=== PATIENT | male | born 1970 | race Caucasian/White ===

== ENCOUNTER → 2016-10-16 | Outpatient (CLI) | payer OTHER ==
[~2016-10-16] MED LIST: AUGM12TA2 PO; CARD120C4 PO; CARD240C6 PO; CIPR500T4 PO; COZA100T PO; DILA2TAB2 PO; FURO1TAB61 PO; GLYB1TAB51 PO; GUAN1TAB PO; INSU1INJ3 SQ; LIPI10TA PO; SODI650T PO; TAMS0.4C4 PO; VITA1000 PO; VITA10004 PO; ZOLO50TA PO
[2016-10-16 09:59] LABS: HEMATOCRIT 28.6 % (39.0-51.0); MEAN CELL VOLUME 79.2 FL (80.0-100.0); PLATELET COUNT 204 TH/MM3 (150-450); RED BLOOD COUNT 3.61 MIL/MM3 (4.50-5.90); RED CELL DISTRIBUTION WIDTH 14.4 % (11.6-17.2); REVIEW FLAG FINAL; WHITE BLOOD COUNT 6.7 TH/MM3 (4.0-11.0)
[2016-10-16 10:08] LABS: PROTHROMBIN TIME - PATIENT 10.7 SEC (9.8-11.6)
[2016-10-16 10:13] LABS: BICARBONATE 24.3 MEQ/L (21.0-32.0); POTASSIUM 5.7 MEQ/L (3.5-5.1)
== END ==
LOC: CPRE 09:05
PROVIDERS: ATTEND Surgery
DX: Z01.812 Encounter for preprocedural laboratory examination (principal); N18.6 End stage renal disease; Z99.2 Dependence on renal dialysis
CPT/HCPCS: 36415; 80048; 85027; 85610

== ENCOUNTER 2016-10-23 09:30 | Observation (INO) | payer OTHER ==
[~2016-10-23] VITALS: Ht 172.7 cm; Wt 91.5 kg
[~2016-10-23 09:30] MED LIST changes: -AUGM12TA2 PO; -CIPR500T4 PO; -DILA2TAB2 PO; -GLYB1TAB51 PO; -TAMS0.4C4 PO
[2016-10-23] MEDS ORDERED: CHLORHEXIDINE GLUCONATE 2 % 1 PACK (2 CLOTHS) TOPICAL PRN (10:00)
[2016-10-23] MEDS ORDERED: LACTATED RINGER'S 1000 ML IV PRN (10:00)
[2016-10-23] MEDS ORDERED: POVIDONE IODINE 5% (ANTISEPSIS KIT) 4 APPLICATIONS EACH NARE PRN (10:00)
[2016-10-23] MEDS ORDERED: INSULIN HUMAN REGULAR 1,000 UNITS/10 ML VIAL SQ PRN (10:00)
[2016-10-23] MEDS ORDERED: SODIUM CHLORID 0.9% 500 ML IV PRN (10:00)
[2016-10-23] MEDS ORDERED: METOPROLOL TARTRATE 25 MG TAB PO PRN (10:00)
[2016-10-23 10:10] VITALS: BP 163/81; PULSE 73; RESP 18; TEMP 98.2; O2SAT 98
[2016-10-23 10:17] VITALS: BP 163/81; PULSE 73; RESP 18; TEMP 98.2; O2SAT 98
[2016-10-23] MEDS ORDERED: VANCOMYCIN HCL 1000 MG VIAL ONE (10:21)
[2016-10-23] MEDS ORDERED: HEPARIN SODIUM - IV 10,000 UNITS/10 ML VIAL ONE (10:21)
[2016-10-23] MEDS ORDERED: PROTAMINE SULFATE 50 MG/5 ML VIAL ONE (10:21)
[2016-10-23] MEDS ORDERED: BUPIVACAINE/EPINEPHRINE 0.5% PF 30 ML VIAL ONE (10:21)
[2016-10-23] MEDS ORDERED: THROMBIN (TOPICAL) 20,000 UNIT SPRAY KIT ONE (10:23)
--- NOTE | 2016-10-23 10:25 | PD.VS.PN ---
Pre-operative Note Pre-operative diagnosis: near ESRD Planned procedure: L brachiobasilic AVF Interval History: Pt feels well - not yet on HD. No interval changes that would preclude OR. Labs: K 5.7 - repeat pending Hct 29 plt 204 Blood: T&S Imaging: none Orders: NPO Ancef 2g IV OCTOR Post-operative destination: PACU Operative site marked: Yes Consent: Informed consent has been obtained from Christian Gomez. I have explained the procedure in detail and discussed the risks, benefits, and potential complications. All questions have been answered. Patient contact information: [phone] Matthew Leon MD Oct 23, 2016 10:25
[2016-10-23] MEDS ORDERED: ceFAZolin 2 GM PREMIX 50 ML ONE (11:04)
[2016-10-23] MEDS ORDERED: ONDANSETRON HCL 4 MG/2 ML VIAL IV PUSH ONE (12:00)
[2016-10-23] MEDS ORDERED: PHENYLEPH/NS 1000 MCG/10 ML SYR IV ONE (12:00)
[2016-10-23] MEDS ORDERED: PROPOFOL 200 MG/20 ML AMP IV ONE (12:00)
--- NOTE | 2016-10-23 12:54 | HHI.PR ---
cc: Param Stapleton MD Immediate Post Op Note Procedure Date: Oct 23, 2016 Pre Op Diagnosis: near ESRD, need for HD access Post Op Diagnosis: near ESRD, need for HD access Surgeon: Matthew Leon [employer] Observer Helper(s): Khai Garcia Procedure: L brachiobasilic AVF Findings: calcified artery, vein 3-7mm Additional Information: + thrill at end of case + radial Doppler signal Complications: none apparent Specimen(s) removed: none Estimated blood loss: 30mL Anesthesia: General Drains: KLARISSA Fluids: 300mL IVF Patient to: PACU Patient Condition: Good Date/Time of Procedure: SEE SURGICAL CARE RECORD Matthew Leon MD Oct 23, 2016 12:54
[2016-10-23] MEDS ORDERED: MIDAZOLAM HCL 2 MG/2 ML VIAL ONE (13:20)
[2016-10-23] MEDS ORDERED: DO NOT ADM ANY ANTICOAGULANT DRUGS PRN (13:30)
[2016-10-23] MEDS ORDERED: *LABETALOL HCL 100 MG/20 ML VIAL PERIprocedural Use ONLY ONE (13:31)
[2016-10-23] MEDS ORDERED: *ONDANSETRON 4 MG VIAL PERIprocedural Use ONLY ONE ×2 (13:45→15:04)
[2016-10-23] MEDS ORDERED: *ENALAPRILAT 1.25 MG/ML VIAL PERIprocedural Use ONLY ONE (14:02)
[2016-10-23] MEDS ORDERED: *PROMETHAZINE 25 MG/ML VIAL PERIprocedural use ONLY ONE ×2 (14:09→15:28)
--- NOTE | 2016-10-23 14:38 | PD.CONS ---
HPI Service Nephrology Consult Requested By Dr. Leon Reason for Consult Chronic kidney disease stage IV Primary Care Physician Christian Denson MD History of Present Illness Patient is a 45-year-old white male with history of type 2 diabetes, hypertension, chronic kidney disease stage IV GFR is 19 and has been admitted to have AV fistula placed in his left upper arm, this was done he is doing well he said that he is passing urine denies any dysuria or burning, his potassium was 5.6 and repeat potassium is pending. He denies any chest pain or shortness of breath postoperatively. Review of Systems Musculoskeletal: COMPLAINS OF: Muscle aches Past Family Social History Allergies: Coded Allergies: Erythromycin (Verified Allergy, Severe, 10/23/16) PT STATES NO KNOWN ALLERGIES. Gentamicin (Verified Allergy, Severe, OTOTOXICITY, 10/23/16) PT STATES NO KNOWN ALLERGIES. Penicillin (Verified Allergy, Severe, 10/23/16) PT STATES NO KNOWN ALLERGIES. Sulfa (Verified Allergy, Severe, 10/23/16) PT STATES NO KNOWN ALLERGIES. Cleocin (Verified Allergy, Intermediate, 10/23/16) PT STATES NO KNOWN ALLERGIES. Keflex (Verified Allergy, Intermediate, 10/23/16) PT STATES NO KNOWN ALLERGIES. Nonsteroidal Anti-Inflammatory Agts (Verified Allergy, Intermediate, ) PT STATES NO KNOWN ALLERGIES. Zithromax (Verified Allergy, Intermediate, 10/23/16) PT STATES NO KNOWN ALLERGIES. 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 (Adverse Reaction, Unknown, 10/16/16) Past Medical History Diabetes Hypertension Chronic kidney disease stage IV Hyperkalemia Hyperlipidemia Past Surgical History Appendicitis 9 years ago status post appendectomy Reported Medications Reported Meds & Active Scripts Active Reported Vitamin B12 Tr (Cyanocobalamin) 1,000 Mcg Tab 1,000 Mcg PO DAILY Sodium Bicarbonate 650 Mg Tab 650 Mg PO BIDPC Zoloft (Sertraline HCl) 50 Mg Tab 50 Mg PO DAILY Cozaar (Losartan Potassium) 100 Mg Tab 100 Mg PO HS Humulin 70-30 Kwikpen Pen Inj (Insulin NPH Isophane-Reg (Human) 70-30 Inj) 300 Unit/3 Ml Pen 25 Unit SQ DAILY Guanfacine (Guanfacine HCl) 1 Mg Tab 1 Mg PO HS Do not crush, chew or divide tablet. Take with a meal. Lasix (Furosemide) 80 Mg Tab 80 Mg PO BID Cardizem CD 24 HR (Diltiazem CD 24 HR) 120 Mg Caper 120 Mg PO HS Cardizem CD 24 HR (Diltiazem CD 24 HR) 240 Mg Caper 240 Mg PO DAILY Vitamin D-1000 (Cholecalciferol) 1,000 Unit Tab 1,000 Units PO DAILY Lipitor (Atorvastatin Calcium) 10 Mg Tab 10 Mg PO HS Family History Noncontributory Social History Denies smoking or alcohol Physical Exam Vital Signs Vital Signs Date Time Temp Pulse Resp B/P Pulse Ox O2 Delivery O2 Flow Rate FiO2 10/23/16 14:30 74 18 150/72 96 Room Air 10/23/16 14:21 75 17 169/77 96 Room Air 10/23/16 14:15 79 18 184/79 97 Room Air 10/23/16 14:00 74 17 182/80 100 Nasal Cannula 2 10/23/16 13:45 74 18 167/75 100 Nasal Cannula 2 10/23/16 13:41 72 18 173/65 99 Nasal Cannula 2 10/23/16 13:30 72 16 186/78 99 Nasal Cannula 2 10/23/16 13:15 78 16 187/79 100 Nasal Cannula 2 10/23/16 13:12 97.9 82 16 198/84 99 Nasal Cannula 2 10/23/16 10:17 98.2 73 18 163/81 98 Physical Exam GENERAL: Well-nourished, well-developed patient. SKIN: Warm and dry. HEAD: Normocephalic. EYES: No scleral icterus. No injection or drainage. NECK: Supple, trachea midline. No JVD or lymphadenopathy. CARDIOVASCULAR: Regular rate and rhythm without murmurs, gallops, or rubs. RESPIRATORY: Breath sounds equal bilaterally. No accessory muscle use. GASTROINTESTINAL: Abdomen soft, non-tender, nondistended. EXTREMITIES: No cyanosis, or edema. AV fistula left arm positive thrill NEUROLOGICAL: Awake, alert, and oriented x 3. Non-focal. Laboratory Laboratory Tests Test 10/23/16 10:10 Potassium Level 5.6 Blood Type A POSITIVE Antibody Screen NEGATIVE Blood Bank Comment Result Diagram: 10/23/16 1010 Assessment and Plan Problem List: (1) CKD (chronic kidney disease) stage 4, GFR 15-29 ml/min Plan: Patient has AV fistula done on the left arm he is doing well he is not on dialysis yet and can be followed by Dr. Stapleton once discharge Limit potassium intake in diet avoid LR (2) Hyperkalemia Plan: Limit potassium in diet (3) Diabetes Plan: Follow blood glucose Justyna Mota MD Oct 23, 2016 14:38
[2016-10-23] MEDS ORDERED: *morphine SULFATE 8 MG/ML PERIprocedure ONLY ONE (14:58)
[2016-10-23 15:01] LABS: BICARBONATE 21.5 MEQ/L (21.0-32.0); POTASSIUM 6.5 MEQ/L (3.5-5.1)
[2016-10-23 16:34] VITALS: BP 181/72; PULSE 20; RESP 20; TEMP 96.7; O2SAT 95
--- NOTE | 2016-10-23 16:37 | PD.VS.PN ---
Subjective POD #: 0 Procedure(s): LEFT brachiobasilic AVF Subjective/Hospital Course feels well, arm sore but pain controlled no hand complaints. Objective Vitals/I&O Date Time Temp Pulse Resp B/P Pulse Ox O2 Delivery O2 Flow Rate FiO2 10/23/16 15:32 16 10/23/16 15:30 73 16 143/69 96 Room Air 10/23/16 15:15 75 18 160/74 96 Room Air 10/23/16 15:00 75 18 165/75 97 Room Air 10/23/16 14:45 74 18 158/76 96 Room Air 10/23/16 14:30 74 18 150/72 96 Room Air 10/23/16 14:21 75 17 169/77 96 Room Air 10/23/16 14:15 79 18 184/79 97 Room Air 10/23/16 14:00 74 17 182/80 100 Nasal Cannula 2 10/23/16 13:45 74 18 167/75 100 Nasal Cannula 2 10/23/16 13:41 72 18 173/65 99 Nasal Cannula 2 10/23/16 13:30 72 16 186/78 99 Nasal Cannula 2 10/23/16 13:15 78 16 187/79 100 Nasal Cannula 2 10/23/16 13:12 97.9 82 16 198/84 99 Nasal Cannula 2 10/23/16 10:17 98.2 73 18 163/81 98 10/23/16 10/23/16 10/23/16 06:59 14:59 22:59 Intake Total 30 ml Output Total 150 ml Balance -120 ml Exam: L UE incision c/d/i + thrill Good hand strength KLARISSA with minimal output Laboratory Laboratory Tests Test 10/23/16 10/23/16 10:10 13:57 Potassium Level 5.6 6.5 Blood Type A POSITIVE Antibody Screen NEGATIVE Blood Bank Comment Sodium Level 140 Chloride Level 109 Carbon Dioxide Level 21.5 Anion Gap 10 Blood Urea Nitrogen 86 Creatinine 5.39 Estimat Glomerular Filtration 12 Rate Random Glucose 149 Calcium Level 8.7 Assessment and Plan Plan AVF patent, hand ok 1. Monitor drain output 2. K 6.5 - defer to nephrology for management; left message for consulting 3. Anticipate d/c tomorrow (POD#1) Discharge Planning Thursday (POD#1) Matthew Leon MD Oct 23, 2016 16:37
[2016-10-23] MEDS: HYDROmorphone HCL 2 MG TAB PO PRN ×2 (16:39→20:36)
[2016-10-23] MEDS: SODIUM POLYSTYRENE SULFONATE SUSP 15 GM/60 ML CUP PO ONE ×2 (16:39→17:39)
[2016-10-23] MEDS ORDERED: CALCIUM GLUCONATE 10% 1 GM/10 ML VIAL IV PUSH ONE (17:00)
[2016-10-23] MEDS ORDERED: INSULIN HUMAN REGULAR 1,000 UNITS/10 ML VIAL IV PUSH ONE (17:00)
[2016-10-23] MEDS ORDERED: DEXTROSE 50% IN WATER 50 ML SYRINGE IV ONE (17:00)
[2016-10-23] MEDS: SODIUM BICARBONATE 650 MG TAB PO SCH ×2 (17:33→18:49)
[2016-10-23 20:00] VITALS: PULSE 80
[2016-10-23 20:26] VITALS: BP 166/84; PULSE 80; RESP 17; TEMP 97.5; O2SAT 95
[2016-10-23] MEDS: FUROSEMIDE 80 MG TAB PO SCH (20:35)
[2016-10-23] MEDS ORDERED: DILTIAZEM-CD 120 MG CAP ER PO SCH (21:00)
[2016-10-23] MEDS ORDERED: LOSARTAN 50 MG TAB PO SCH (21:00)
[2016-10-23] MEDS ORDERED: ATORVASTATIN 10 MG TAB PO SCH (21:00)
[2016-10-23] MEDS ORDERED: guanFACINE HCL 1 MG TAB PO SCH (21:00)
[2016-10-24 00:07] VITALS: BP 158/80; PULSE 78; RESP 17; TEMP 98.4; O2SAT 97
[2016-10-24 04:26] VITALS: BP 144/76; PULSE 88; RESP 18; TEMP 98.6; O2SAT 96
[2016-10-24] MEDS: HYDROmorphone HCL 2 MG TAB PO PRN ×3 (05:27→16:36)
[2016-10-24 06:27] LABS: BICARBONATE 22.7 MEQ/L (21.0-32.0)
[2016-10-24 08:07] VITALS: BP 171/79; PULSE 83; RESP 18; TEMP 98.9; O2SAT 94
[2016-10-24] MEDS: SODIUM BICARBONATE 650 MG TAB PO SCH (08:28)
[2016-10-24] MEDS: FUROSEMIDE 80 MG TAB PO SCH (08:28)
[2016-10-24] MEDS ORDERED: CYANOCOBALAMIN 1,000 MCG TAB PO SCH (09:00)
[2016-10-24] MEDS ORDERED: INSULIN HUMAN NPH/R 70/30 1,000 UNITS/10 ML VIAL SQ SCH (09:00)
[2016-10-24] MEDS ORDERED: DILTIAZEM-CD 240 MG CAP ER PO SCH (09:00)
[2016-10-24] MEDS ORDERED: CHOLECALCIFEROL (VIT D3) 1000 UNIT TAB PO SCH (09:00)
[2016-10-24] MEDS ORDERED: SERTRALINE HCL 50 MG TAB PO SCH (09:00)
--- NOTE | 2016-10-24 09:08 | PD.VS.PN ---
Subjective POD #: 1 Procedure(s): LEFT brachiobasilic AVF Subjective/Hospital Course Pt alert this am with FM at the Pain controlled Pt w/o hand pain Drain removed from Left arm Objective Vitals/I&O Date Time Temp Pulse Resp B/P Pulse Ox O2 Delivery O2 Flow Rate FiO2 10/24/16 08:07 98.9 83 18 171/79 94 10/24/16 06:20 20 10/24/16 05:02 21 10/24/16 04:26 98.6 88 18 144/76 96 10/24/16 00:07 98.4 78 17 158/80 97 10/23/16 20:26 97.5 80 17 166/84 95 10/23/16 20:00 80 10/23/16 16:34 96.7 20 20 181/72 95 10/23/16 15:32 16 10/23/16 15:30 73 16 143/69 96 Room Air 10/23/16 15:15 75 18 160/74 96 Room Air 10/23/16 15:00 75 18 165/75 97 Room Air 10/23/16 14:45 74 18 158/76 96 Room Air 10/23/16 14:30 74 18 150/72 96 Room Air 10/23/16 14:21 75 17 169/77 96 Room Air 10/23/16 14:15 79 18 184/79 97 Room Air 10/23/16 14:00 74 17 182/80 100 Nasal Cannula 2 10/23/16 13:45 74 18 167/75 100 Nasal Cannula 2 10/23/16 13:41 72 18 173/65 99 Nasal Cannula 2 10/23/16 13:30 72 16 186/78 99 Nasal Cannula 2 10/23/16 13:15 78 16 187/79 100 Nasal Cannula 2 10/23/16 13:12 97.9 82 16 198/84 99 Nasal Cannula 2 10/23/16 10:17 98.2 73 18 163/81 98 Exam: GENERAL: A&OX3, NAD SKIN: Warm and dry/ Incision to left arm intact with surgical glue mild swelling present with erythema along the incision borders no drainage present Palpable L radial pulse No UE motor deficits present Pt w/o hand pain Laboratory Laboratory Tests Test 10/23/16 10/23/16 10/24/16 10:10 13:57 05:19 Potassium Level 5.6 6.5 6.0 Blood Type A POSITIVE Antibody Screen NEGATIVE Blood Bank Comment Sodium Level 140 140 Chloride Level 109 108 Carbon Dioxide Level 21.5 22.7 Anion Gap 10 9 Blood Urea Nitrogen 86 85 Creatinine 5.39 5.64 Estimat Glomerular Filtration 12 11 Rate Random Glucose 149 169 Calcium Level 8.7 8.3 Assessment and Plan Assessment: (1) CKD (chronic kidney disease) stage 4, GFR 15-29 ml/min Status: Acute Plan AVF patent, hand ok- K - 6.0 this am Plan Removed drain from Left arm Spoke w/ Dr. Mota (K 6.0 this am- defer to nephrology for management) Repeat K this afternoon Potential D/C this afternoon once cleared by nephrology Jessica GOODE [facility]/[place] [phone] Discharge Planning Potentially this afternoon Jessica Grady Oct 24, 2016 09:08
[2016-10-24 10:15] VITALS: O2SAT 96
[2016-10-24] MEDS ORDERED: SODIUM POLYSTYRENE SULFONATE SUSP 15 GM/60 ML CUP PO ONE (11:00)
[2016-10-24 12:00] VITALS: BP 189/80; PULSE 85; RESP 20; TEMP 97.7; O2SAT 96
[2016-10-24] MEDS: HEPARIN SODIUM - SQ 10,000 UNITS/ML VIAL SQ SCH ×2 (12:10→12:12)
--- NOTE | 2016-10-24 12:30 | HHI.NPPN ---
Subjective History of Present Illness 45 year old male with CKD approaching ESRD AVF left was created yesterday Additional Remarks developed hyperkalemia Objective Data Data 10/23/16 10/24/16 19:00 07:00 Intake Total 30 ml 760 ml Output Total 150 ml 713 ml Balance -120 ml 47 ml Intake Oral 30 ml 760 ml Output Urine Total 0 ml 700 ml Emesis 150 ml Drainage Total 13 ml # Voids 1 # Bowel Movements 0 Vital Signs Date Time Temp Pulse Resp B/P Pulse Ox O2 Delivery O2 Flow Rate FiO2 10/24/16 12:00 97.7 85 20 189/80 96 10/24/16 10:15 96 10/24/16 08:07 98.9 83 18 171/79 94 10/24/16 06:20 20 10/24/16 05:02 21 10/24/16 04:26 98.6 88 18 144/76 96 10/24/16 00:07 98.4 78 17 158/80 97 10/23/16 20:26 97.5 80 17 166/84 95 10/23/16 20:00 80 10/23/16 16:34 96.7 20 20 181/72 95 10/23/16 15:32 16 10/23/16 15:30 73 16 143/69 96 Room Air 10/23/16 15:15 75 18 160/74 96 Room Air 10/23/16 15:00 75 18 165/75 97 Room Air 10/23/16 14:45 74 18 158/76 96 Room Air 10/23/16 14:30 74 18 150/72 96 Room Air 10/23/16 14:21 75 17 169/77 96 Room Air 10/23/16 14:15 79 18 184/79 97 Room Air 10/23/16 14:00 74 17 182/80 100 Nasal Cannula 2 10/23/16 13:45 74 18 167/75 100 Nasal Cannula 2 10/23/16 13:41 72 18 173/65 99 Nasal Cannula 2 10/23/16 13:30 72 16 186/78 99 Nasal Cannula 2 10/23/16 13:15 78 16 187/79 100 Nasal Cannula 2 10/23/16 13:12 97.9 82 16 198/84 99 Nasal Cannula 2 -: 10/24/16 0519 Physical Exam General Appearance: Well Developed, Well Nourished Neck Neck Exam: Neck Supple Pulmonary Resp Exam: Clear Bilaterally, Breath Sounds Equal Cardiology CV Exam: Regular, Normal Sinus Rhythm Gastrointestinal/Abdomen GI Exam: Soft, Non-Tender, Bowel Sounds Present Integumentary Skin Exam: Clear Extremeties Extremities Exam: No Edema Extremeties Remarks AVF left positive thrill Assessment/Plan Problem List: (1) CKD (chronic kidney disease) stage 4, GFR 15-29 ml/min Plan: Patient has AV fistula done on the left arm he is doing well he is not on dialysis yet and can be followed by Dr. Stapleton once discharge Limit potassium intake in diet stop Losartan as hyperkalemic increase Tenex 2 ng q hs Kayexalate given recheck if less then 6 OK to discharge (2) Hyperkalemia Plan: Limit potassium in diet as above (3) Diabetes Plan: Follow blood glucose Justyna Mota MD Oct 24, 2016 12:30
--- NOTE | 2016-10-24 16:08 | MP ---
cc: CHRISTINA LEON MD DATE OF SURGERY 10/23/16 PREOPERATIVE DIAGNOSIS Near end-stage renal disease, needs dialysis access. POSTOPERATIVE DIAGNOSIS Near end-stage renal disease, needs dialysis access. PROCEDURE Left brachial basilic arteriovenous fistula. ATTENDING SURGEON Christina Leon MD ANESTHESIA General. INDICATIONS Mr. Gomez is a 45-year-old gentleman with near end-stage renal disease with a creatinine of 4.8. He has never been on dialysis. He is taken to the operating room for dialysis access creation. Preoperative imaging suggested he had adequate left basilic vein. DESCRIPTION OF PROCEDURE Informed consent was obtained. The patient was taken to the operating room, placed supine on the operating room table and an appropriate time-out was taken to ensure the patient's identity, operative site and planned procedure. Two grams of Ancef was initiated prior to skin incision and will be discontinued after single preoperative. Everyone in the room agreed and we proceeded. His left arm was prepped and draped. Incision made over the medial aspect of the upper arm, carried down to subcutaneous tissue with electrocautery. The basilic vein was identified and dissected free from just distal to the antecubitum all the way up against the axillary vein. Side branches were ligated with 3-0 silk and the vein was marked for orientation, clamped distally. The distal end was oversewn with 3-0 silk. The proximal end was clamped with a Abhi bulldog and the vein was distended, marked for inpatient. The brachial artery was identified on the medial aspect of the incision and dissected free for several cm. It was noted to be quite calcified. A tunnel was then created in the anterior aspect of the upper arm. The basilic vein was tied to the tunneler and passed through the tunnel taking caution not to twist it. The patient was systemically heparinized with 3000 units of IV heparin. Proximal, distal control of the brachial artery were obtained with profunda clamps and a longitudinal arteriotomy was made with an 11 blade, extended with Vini scissors. The vein was spatulated and sewn end-to-side with running 6-0 Prolene suture. The completion was flushed and noted to be hemostatic with nice Doppler signal in the wrist and a beautiful thrill in the fistula. The wound was irrigated, made hemostatic. The heparin reversed with protamine and a 10 flat KLARISSA drain was placed through a separate stab incision and secured to the skin with a 2-0 nylon. The wound was then closed with O Polysorb, 3-0 Polysorb and 4-0 Monocryl. Sponge and needle counts were correct at the end of the case. I was present and scrubbed for the entire procedure. MD NATALIA Evans/[place] /4:57 PM /3:54 PM MTDFranck
[2016-10-24] MEDS ORDERED: DILA2TAB2 PO (16:09)
--- NOTE | 2016-10-24 16:18 | PD.VS.DC ---
Discharge Summary Admission Date: Oct 23, 2016 at 12:58 Discharge Date: Oct 24, 2016 Admission Diagnosis: (1) CKD (chronic kidney disease) stage 4, GFR 15-29 ml/min Discharge Diagnosis: (1) CKD (chronic kidney disease) stage 4, GFR 15-29 ml/min Status: Acute Brief History from admission Pt with near ESRD who is not currently on dialysis Patient admitted for HD access and monitoring Procedure(s): LEFT brachiobasilic AVF Significant Findings GENERAL: Pt A&OX3, GCS 15, NAD Incision to Left arm intact with surgical glue + palpable Radial pulse Laboratory Tests Test 10/23/16 10/23/16 10/24/16 10:10 13:57 05:19 Potassium Level 5.6 MEQ/L 6.5 MEQ/L 6.0 MEQ/L (3.5-5.1) (3.5-5.1) (3.5-5.1) Chloride Level 109 MEQ/L 108 MEQ/L (98-107) (98-107) Blood Urea Nitrogen 86 MG/DL (7-18) 85 MG/DL (7-18) Creatinine 5.39 MG/DL 5.64 MG/DL (0.60-1.30) (0.60-1.30) Estimat Glomerular Filtration 12 ML/MIN (>89) 11 ML/MIN (>89) Rate Random Glucose 149 MG/DL 169 MG/DL (74-106) (74-106) Calcium Level 8.3 MG/DL (8.5-10.1) Hospital Course: Pt with near ESRD who is not currently on dialysis Patient admitted for HD access and monitoring Pt s/p L BB w/o complications Pt w/o hand pain or motor deficits Pt developed hyperkalemia and nephrology was consulted Repeat K done today - K- 4.8 Pt will f/u with nephrology Allergies Coded Allergies Type Severity Reaction Last Updated Verified Erythromycin Allergy Severe 10/23/16 Yes Gentamicin Allergy Severe OTOTOXICITY 10/23/16 Yes Penicillin Allergy Severe 10/23/16 Yes Sulfa Allergy Severe 10/23/16 Yes Cleocin Allergy Intermediate 10/23/16 Yes Keflex Allergy Intermediate 10/23/16 Yes Nonsteroidal Anti-Inflammatory Agts Allergy Intermediate 10/23/16 Yes Zithromax Allergy Intermediate 10/23/16 Yes *MDRO Multi-Drug Resistant Organism Adverse Reaction Unknown 10/23/16 Yes Uncoded Allergies Type Severity Reaction Last Updated Verified patient denies any drug allergies. Adverse Reaction Unknown 10/16/16 //// 06:00 18:00 06:00 18:00 06:00 18:00 Intake Total 30 ml 760 ml 600 ml Output Total 150 ml 713 ml 200 ml Balance -120 ml 47 ml 400 ml Intake Oral 30 ml 760 ml 600 ml Output Urine Total 0 ml 700 ml 200 ml Emesis 150 ml Drainage Total 13 ml # Voids 1 1 # Bowel Movements 0 Laboratory Tests Test 10/23/16 10/23/16 10/24/16 10/24/16 10:10 13:57 05:19 14:32 Potassium Level 5.6 MEQ/L 6.5 MEQ/L 6.0 MEQ/L 4.8 MEQ/L Blood Type A POSITIVE Antibody Screen NEGATIVE Blood Bank Comment Sodium Level 140 MEQ/L 140 MEQ/L Chloride Level 109 MEQ/L 108 MEQ/L Carbon Dioxide Level 21.5 MEQ/L 22.7 MEQ/L Anion Gap 10 MEQ/L 9 MEQ/L Blood Urea Nitrogen 86 MG/DL 85 MG/DL Creatinine 5.39 MG/DL 5.64 MG/DL Estimat Glomerular Filtration 12 ML/MIN 11 ML/MIN Rate Random Glucose 149 MG/DL 169 MG/DL Calcium Level 8.7 MG/DL 8.3 MG/DL Procedure Category Date Status Time Type And Screen BBK 10/23/16 Complete 09:32 Potassium, Serum (K) LAB 10/23/16 Complete 09:52 Lactated Ringer's MED 10/23/16 Complete 1000 Ml Inj (Lr 1000 M 10:00 Sodium Chlorid 0.9% MED 10/23/16 In Process 500 Ml Inj (Ns 500 M 10:00 Metoprolol Tartrate MED 10/23/16 In Process (Lopressor) 10:00 Povidone Iod 5% MED 10/23/16 In Process Antisepsis Kit 10:00 Chlorhexidine 2% MED 10/23/16 In Process Cloth (Chlorhexidine 10:00 Insulin Human Regular MED 10/23/16 In Process Inj (Novolin R Inj 10:00 Heparin Inj (Heparin MED 10/23/16 Complete Inj) 10:21 Bupivacaine-Epi Pf MED 10/23/16 Complete 0.5% Inj (Sensorcaine 10:21 Vancomycin Inj MED 10/23/16 Complete (Vancomycin Inj) 10:21 Protamine Sulfate Inj MED 10/23/16 Complete (Protamine Sulfate 10:21 Thrombin Top Keaton MED 10/23/16 Complete (Thrombin Top Keaton) 10:23 Cefazolin 2 Gm Premix MED 10/23/16 Complete (Ancef 2 Gm Premix 11:04 Place In Observation ADMITTING 10/23/16 Transmitted Code Status CODE 10/23/16 Transmitted 12:54 Vital Signs (Adult) DI 10/23/16 In Process 12:54 Church Organist / DI 10/23/16 In Process Telemetry 12:54 Activity Oob Ad Brenda DI 10/23/16 In Process 12:54 ^ Precautions DI 10/23/16 In Process 12:54 Basic Metabolic Panel LAB 10/23/16 Complete (Bmp) 12:54 Basic Metabolic Panel LAB 10/24/16 Complete (Bmp) 06:00 Consult Nephrology CONS 10/23/16 Transmitted Oxycodone (Roxicodone) MED 10/23/16 In Process 14:00 Hydromorphone MED 10/23/16 In Process (Dilaudid) 14:00 Atorvastatin (Lipitor) MED 10/23/16 In Process 21:00 Cholecalciferol MED 10/24/16 In Process (Vitamin D3) 09:00 Cyanocobalamin MED 10/24/16 In Process (Vitamin B12) 09:00 Diltiazem Cd MED 10/23/16 In Process (Cardizem Cd) 21:00 Diltiazem Cd MED 10/24/16 In Process (Cardizem Cd) 09:00 Furosemide (Lasix) MED 10/23/16 In Process 21:00 Guanfacine (Tenex) MED 10/23/16 Complete 21:00 Losartan (Cozaar) MED 10/23/16 Complete 21:00 Sertraline (Zoloft) MED 10/24/16 In Process 09:00 Sodium Bicarbonate MED 10/23/16 In Process (Sodium Bicarbonate) 18:00 Insulin Human Nph/R MED 10/24/16 In Process 70/30 Inj (Novolin 7 09:00 Midazolam Inj (Versed MED 10/23/16 Complete Inj) 13:20 Fentanyl Inj MED 10/23/16 Complete (Fentanyl Inj) 13:20 (Hub Use Only)Inp Phy CONS 10/23/16 Transmitted Cons/Ref Misc Nursing MED 10/23/16 Complete Information 13:30 *Labetalol Inj MED 10/23/16 Complete (*Trandate Inj 13:31 Heparin Inj (Heparin MED 10/24/16 In Process Inj) 12:00 *Ondansetron Inj MED 10/23/16 Complete (*Zofran Inj 13:45 *Enalaprilat Inj MED 10/23/16 Complete (*Vasotec Inj 14:02 *Promethazine Inj MED 10/23/16 Complete (*Phenergan Inj Peripr 14:09 Bedside Glucose [facility] 10/23/16 Complete Sds Pre Op Care [facility] 10/23/16 Complete Diet 1999 Ada Cons DIET 10/23/16 Transmitted Carb Dinner *Morphine Inj MED 10/23/16 Complete (*Morphine Inj 14:58 *Ondansetron Inj MED 10/23/16 Complete (*Zofran Inj 15:04 *Promethazine Inj MED 10/23/16 Complete (*Phenergan Inj Peripr 15:28 Anticoagulant Alert DI 10/23/16 In Process ^ Sling DI 10/23/16 In Process Resp Oxygen Aidan C RSP 10/23/16 Logged Titrat 1-4 L Sodium Polysty MED 10/23/16 Complete Sulfate Liq 17:00 Calcium Gluconate Inj MED 10/23/16 Complete (Calcium Gluconate 17:00 Dextrose 50% In Dinh MED 10/23/16 Complete (Syr) Inj (D50w (Syr 17:00 Insulin Human Regular MED 10/23/16 Complete Inj (Novolin R Inj 17:00 Class Iv Pacu [facility]a 30 [facility] 10/23/16 Complete MIN General/Pacu [facility] 10/23/16 Complete Post Anesthesia Oxygen [facility] 10/23/16 Complete Pacu [facility] 10/23/16 Complete Hourly ^ Other Nursing Orders DI 10/23/16 In Process 16:34 Potassium, Serum (K) LAB 10/24/16 Complete 14:00 Sling Cradle Arm ORTHO 10/24/16 Complete Sodium Polysty MED 10/24/16 Complete Sulfate Liq 11:00 Influenza (Quad) MED 10/25/16 In Process Vaccine Inj (Flu 10:00 Guanfacine (Tenex) MED 10/24/16 In Process 21:00 Attending Discharge DISCHARGE 10/24/16 Transmitted Order Vital Signs Date Time Temp Pulse Resp B/P Pulse Ox O2 Delivery O2 Flow Rate FiO2 10/24/16 12:00 97.7 85 20 189/80 96 10/24/16 10:15 96 10/24/16 08:07 98.9 83 18 171/79 94 10/24/16 06:20 20 10/24/16 05:02 21 10/24/16 04:26 98.6 88 18 144/76 96 10/24/16 00:07 98.4 78 17 158/80 97 10/23/16 20:26 97.5 80 17 166/84 95 10/23/16 20:00 80 10/23/16 16:34 96.7 20 20 181/72 95 10/23/16 15:32 16 10/23/16 15:30 73 16 143/69 96 Room Air 10/23/16 15:15 75 18 160/74 96 Room Air 10/23/16 15:00 75 18 165/75 97 Room Air 10/23/16 14:45 74 18 158/76 96 Room Air 10/23/16 14:30 74 18 150/72 96 Room Air 10/23/16 14:21 75 17 169/77 96 Room Air 10/23/16 14:15 79 18 184/79 97 Room Air 10/23/16 14:00 74 17 182/80 100 Nasal Cannula 2 10/23/16 13:45 74 18 167/75 100 Nasal Cannula 2 10/23/16 13:41 72 18 173/65 99 Nasal Cannula 2 10/23/16 13:30 72 16 186/78 99 Nasal Cannula 2 10/23/16 13:15 78 16 187/79 100 Nasal Cannula 2 10/23/16 13:12 97.9 82 16 198/84 99 Nasal Cannula 2 10/23/16 10:17 98.2 73 18 163/81 98 Discharge Condition: Good Discharge Disposition: Discharge Home Discharge Instructions: Pt will f/u in our OPC on 11/14/16 at 1:30 Pt will f/u with [facility] Consultant this week Leave incision Open to Air May shower tomorrow then pat dry Do not apply any creams or ointments to incision site No tub baths or submerging in the ocean or pool while incision is healing Call the office with any new questions or concerns Jessica Carrington [facility]/[place] [phone] Any questions or concerns: Call [facility] Heart [facility] Vascular Surgery at [facility] [phone] Jessica Grady Oct 24, 2016 16:18
[2016-10-24] MEDS ORDERED: guanFACINE HCL 1 MG TAB PO SCH (21:00)
[2016-10-25] MEDS ORDERED: INFLUENZA VIRUS VACCINE (QUADRIVALENT) 0.5 ML SYR IM ONE (10:00)
== END 2016-10-24 17:20 | disposition home or self-care (01) ==
LOC: HSDC 09:30 → HSDI 12:58 → N07B 15:50
PROVIDERS: ADMIT Surgery; ATTEND Surgery
DX: I12.9 Hypertensive chronic kidney disease with stage 1 through stage 4 chronic kidney disease, or unspecified chronic kidney disease (principal); N18.4 Chronic kidney disease, stage 4 (severe); E11.22 Type 2 diabetes mellitus with diabetic chronic kidney disease; E87.5 Hyperkalemia; E78.5 Hyperlipidemia, unspecified; Z79.84 Long term (current) use of oral hypoglycemic drugs
CPT/HCPCS: 01844; 36821; 76937; 80048; 82948; 84132; 86850; 86900; 86901; G0378; J0610; J0690; J1644; J1815; J2250; J2270; J2370; J2405; J2550; J2720; J3010; J3370; J7040

== ENCOUNTER 2016-11-01 21:00 | Emergency (ER) | payer OTHER ==
[~2016-11-01] VITALS: Ht 172.7 cm; Wt 90.0 kg
[~2016-11-01 21:00] MED LIST changes: -COZA100T PO; +DILA2TAB2 PO
[2016-11-01 21:29] VITALS: BP 177/69; PULSE 74; RESP 20; TEMP 98.4; O2SAT 97
[2016-11-01] MEDS ORDERED: SODIUM CHLOR 0.9% 1000 ML INJ 1,000 ML IV ONE (22:30)
[2016-11-01] MEDS ORDERED: ONDANSETRON HCL 4 MG/2 ML VIAL IV ONE (22:30)
--- NOTE | 2016-11-01 22:45 | PD ---
HPI . Abdominal pain Chief Complaint: Abdominal Pain Time Seen by Provider: 22:13 Travel History International Travel<30 days: No Contact w/Intl Traveler<30days: No Traveled to known affect area: No History of Present Illness HPI Patient presents with a chief complaint of abdominal pain and constipation. Onset was about a week ago. He is also complaining with some nausea and vomiting which started 3 or 4 days ago. He denies fever. He denies urinary tract symptoms. He states all of his symptoms started after he had a fistula placed in his left upper extremity. He does have chronic kidney disease secondary to hypertension and diabetes. Dialysis is eminent but has not yet started. He describes his discomfort as constant rates it 09/10. No exacerbating or relieving factors. [facility] Past Medical History Arthritis: No Asthma: Yes (as a child 15-18 yrs) Blood Disorders: No Depression: Yes Heart Rhythm Problems: No Cancer: No Cardiovascular Problems: Yes High Cholesterol: Yes (hyperlipidemia) Chemotherapy: No Chest Pain: No Congestive Heart Failure: No COPD: No Cerebrovascular Accident: No Diabetes: Yes Diminished Hearing: No Endocrine: Yes Gastrointestinal Disorders: No GERD: No Glaucoma: No Genitourinary: Yes (proteinuria ) Hepatitis: No Hiatal Hernia: No Hypertension: No Immune Disorder: No Kidney Stones: No Musculoskeletal: Yes (muscle pain ) Neurologic: Yes Psychiatric: Yes Reproductive: No Respiratory: Yes Migraines: No Myocardial Infarction: No Radiation Therapy: No Seizures: No Sickle Cell Disease: No Sleep Apnea: No Thyroid Disease: No Ulcer: No Past Surgical History Abdominal Surgery: Yes (appendectomy 2004, Hernia repair 2004) AICD: No Appendectomy: Yes Arteriovenous Shunt: No Cardiac Surgery: No Ear Surgery: No Endocrine Surgery: No Eye Surgery: No Genitourinary Surgery: No Gynecologic Surgery: No Insulin Pump: No Joint Replacement: No Oral Surgery: No Pacemaker: No Thoracic Surgery: No Other Surgery: Yes (INGUINAL HERNIA REPAIR) Social History Alcohol Use: No Tobacco Use: No Substance Use: No Allergies-Medications (Allergen,Severity, Reaction): Coded Allergies: Erythromycin (Verified Allergy, Severe, 10/23/16) PT STATES NO KNOWN ALLERGIES. Gentamicin (Verified Allergy, Severe, OTOTOXICITY, 10/23/16) PT STATES NO KNOWN ALLERGIES. Penicillin (Verified Allergy, Severe, 10/23/16) PT STATES NO KNOWN ALLERGIES. Sulfa (Verified Allergy, Severe, 10/23/16) PT STATES NO KNOWN ALLERGIES. Cleocin (Verified Allergy, Intermediate, 10/23/16) PT STATES NO KNOWN ALLERGIES. Keflex (Verified Allergy, Intermediate, 10/23/16) PT STATES NO KNOWN ALLERGIES. Nonsteroidal Anti-Inflammatory Agts (Verified Allergy, Intermediate, ) PT STATES NO KNOWN ALLERGIES. Zithromax (Verified Allergy, Intermediate, 10/23/16) PT STATES NO KNOWN ALLERGIES. 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 (Adverse Reaction, Unknown, 10/16/16) Reported Meds & Prescriptions Reported Meds & Active Scripts Active Zofran Odt (Ondansetron Odt) 4 Mg Tab 4 Mg SL Q6HR PRN Reported Guanfacine (Guanfacine HCl) 2 Mg Tab 2 Mg PO HS Do not crush, chew or divide tablet. Take with a meal. Vitamin B12 Tr (Cyanocobalamin) 1,000 Mcg Tab 1,000 Mcg PO DAILY Sodium Bicarbonate 650 Mg Tab 650 Mg PO BIDPC Zoloft (Sertraline HCl) 50 Mg Tab 50 Mg PO DAILY Humulin 70-30 Kwikpen Pen Inj (Insulin NPH Isophane-Reg (Human) 70-30 Inj) 300 Unit/3 Ml Pen 25 Unit SQ DAILY Lasix (Furosemide) 80 Mg Tab 80 Mg PO BID Cardizem CD 24 HR (Diltiazem CD 24 HR) 120 Mg Caper 120 Mg PO HS Cardizem CD 24 HR (Diltiazem CD 24 HR) 240 Mg Caper 240 Mg PO DAILY Vitamin D-1000 (Cholecalciferol) 1,000 Unit Tab 1,000 Units PO DAILY Lipitor (Atorvastatin Calcium) 10 Mg Tab 10 Mg PO HS Review of Systems Except as stated in HPI: all other systems reviewed are Neg General / Constitutional: No: Fever, Chills Cardiovascular: No: Chest Pain or Discomfort Respiratory: No: Cough, Shortness of Breath Gastrointestinal: Positive: Nausea, Vomiting, Abdominal Pain, Constipation, No : Diarrhea Genitourinary: No: Urgency, Frequency, Dysuria Skin: Positive Other (recent AV fistula in the left upper extremity) Physical Exam Narrative GENERAL: Awake and alert and in no acute distress. SKIN: Warm and dry. He is a little bit pale. Recent AV fistula, left upper extremity. It has the expected amount of induration and erythema around the surgical site. HEAD: Atraumatic. Normocephalic. EYES: Pupils equal and round. Extraocular movements are intact. ENT: No nasal bleeding or discharge. Mucous membranes pink and moist. NECK: Trachea midline. Neck is supple. CARDIOVASCULAR: Regular rate and rhythm. Heart sounds are normal. RESPIRATORY: No accessory muscle use. Lungs are clear with good air movement throughout. GASTROINTESTINAL: Abdomen soft, non-tender, nondistended. MUSCULOSKELETAL: No obvious deformities. No edema. NEUROLOGICAL: Awake and alert. No obvious cranial nerve deficits. Motor grossly within normal limits. Normal speech. PSYCHIATRIC: Appropriate mood and affect; insight and judgment normal. Data Data Last Documented VS Vital Signs Date Time Temp Pulse Resp B/P Pulse Ox O2 Delivery O2 Flow Rate FiO2 11/01/16 21:29 98.4 74 20 177/69 97 Orders Complete Blood Count With Diff (11/01/16 22:21) Comprehensive Metabolic Panel (11/01/16 22:21) Lactic Acid Sepsis Protocol (11/01/16 22:21) Urinalysis - C+S If Indicated (11/01/16 22:21) Blood Culture (11/01/16 22:21) Iv Access Insert/Monitor (11/01/16 22:21) Ondansetron Inj (Zofran Inj) (11/01/16 22:30) Sodium Chlor 0.9% 1000 Ml Inj (Ns 1000 M (11/01/16 22:30) Abdomen, Flat & Upright (11/01/16 22:21) Cath For Specimen (11/01/16 23:53) Labs Laboratory Tests Test 11/01/16 23:00 White Blood Count 7.3 TH/MM3 Red Blood Count 3.51 MIL/MM3 Hemoglobin 9.4 GM/DL Hematocrit 28.5 % Mean Corpuscular Volume 81.1 FL Mean Corpuscular Hemoglobin 26.7 PG Mean Corpuscular Hemoglobin 32.9 % Concent Red Cell Distribution Width 12.9 % Platelet Count 224 TH/MM3 Mean Platelet Volume 7.2 FL Neutrophils (%) (Auto) 80.3 % Lymphocytes (%) (Auto) 12.1 % Monocytes (%) (Auto) 5.0 % Eosinophils (%) (Auto) 1.9 % Basophils (%) (Auto) 0.7 % Neutrophils # (Auto) 5.8 TH/MM3 Lymphocytes # (Auto) 0.9 TH/MM3 Monocytes # (Auto) 0.4 TH/MM3 Eosinophils # (Auto) 0.1 TH/MM3 Basophils # (Auto) 0.1 TH/MM3 CBC Comment DIFF FINAL Differential Comment Sodium Level 139 MEQ/L Potassium Level 4.5 MEQ/L Chloride Level 99 MEQ/L Carbon Dioxide Level 22.8 MEQ/L Anion Gap 17 MEQ/L Blood Urea Nitrogen 112 MG/DL Creatinine 7.30 MG/DL Estimat Glomerular Filtration 8 ML/MIN Rate Random Glucose 121 MG/DL Lactic Acid Level 0.6 mmol/L Calcium Level 9.3 MG/DL Total Bilirubin 0.6 MG/DL Aspartate Amino Transf 21 U/L (AST/SGOT) Alanine Aminotransferase 21 U/L (ALT/SGPT) Alkaline Phosphatase 234 U/L Total Protein 8.2 GM/DL Albumin 3.2 GM/DL [facility] Medical Decision Making Medical Screen Exam Complete: Yes Emergency Medical Condition: Yes Differential Diagnosis Differential diagnosis of abdominal pain includes but is not limited to gastritis, pancreatitis, hepatitis, gastroenteritis, gallbladder disease, constipation, urinary retention, UTI, peptic ulcer disease, diverticulitis or appendicitis Narrative Course This patient presents with abdominal pain, constipation associated with nausea and vomiting. He does have a history of hypertension, diabetes and chronic kidney disease. I will evaluate him for possible sepsis or bowel obstruction. However, I suspect that his symptoms are simply secondary to constipation. Supine and upright views of the abdomen were performed. The abdominal bowel gas pattern is normal. No air fluid levels are seen. No abnormal masses, calcifications, or organomegaly is seen. The visualized lower lungs are clear. No evidence of free intraperitoneal gas. The osseous structures are unremarkable. The plain films were independently reviewed by me. CBC & BMP Diagram 11/01/16 23:00 LA 0.6 LFTs unremarkable. The patient has had no further vomiting since he's been here. UA is still pending. His care is being turned over to Dr. Rogers pending the results of the UA. I anticipate discharge. Diagnosis Primary Impression: Constipation Qualified Code: K59.00 - Constipation, unspecified constipation type Additional Impression: Vomiting Qualified Code: R11.2 - Non-intractable vomiting with nausea, unspecified vomiting type Patient Instructions: Acute Nausea and Vomiting (DC), Constipation (DC), General Instructions Med/Other Pt SpecificInfo: Prescription(s) given Scripts Ondansetron Odt (Zofran Odt)4 Mg Tab4 Mg SL Q6HR PRN (Nausea/Vomiting) #30 TAB Ref 0 Prov:Pamela Arreola MD 11/01/16 Condition: Stable Pamela Arreola MD Nov 01, 2016 22:45
--- NOTE | 2016-11-01 23:05 | RADRPT ---
EXAM DATE/TIME: 11/01/2016 22:34 [facility] COMPARISON: No previous studies available for comparison. INDICATIONS : Nausea, vomitting, constipation, diarrhea for four days. MEDICAL HISTORY : None. SURGICAL HISTORY : Appendectomy. Hernia repair. ENCOUNTER: Initial ACUITY: 4 - 6 days PAIN SCORE: 0/10 LOCATION: Abdomen FINDINGS: Supine and upright views of the abdomen were performed. The abdominal bowel gas pattern is normal. No air fluid levels are seen. No abnormal masses, calcifications, or organomegaly is seen. The visu alized lower lungs are clear. No evidence of free intraperitoneal gas. The osseous structures are u nremarkable. CONCLUSION: Normal examination. Anand Savage MD on November 01, 2016 at 23:03 Board Certified Radiologist. This report was verified electronically.
[2016-11-01 23:12] LABS: AUTOMATED NEUTROPHIL # 5.8 TH/MM3 (1.8-7.7); BASOPHIL # 0.1 TH/MM3 (0-0.2); BASOPHIL % 0.7 % (0.0-2.0); EOSINOPHIL # 0.1 TH/MM3 (0-0.4); EOSINOPHIL % 1.9 % (0.0-4.0); HEMATOCRIT 28.5 % (39.0-51.0); HEMO FLAGS DIFF FINAL; LYMPH % 12.1 % (9.0-44.0); LYMPHOCYTE # 0.9 TH/MM3 (1.0-4.8); MEAN CELL VOLUME 81.1 FL (80.0-100.0); MEAN CORPUSCULAR HEMOGLOBIN 26.7 PG (27.0-34.0); MEAN CORPUSCULAR HGB CONC 32.9 % (32.0-36.0); NEUT % 80.3 % (16.0-70.0); PLATELET COUNT 224 TH/MM3 (150-450); RED BLOOD COUNT 3.51 MIL/MM3 (4.50-5.90); RED CELL DISTRIBUTION WIDTH 12.9 % (11.6-17.2); WHITE BLOOD COUNT 7.3 TH/MM3 (4.0-11.0)
[2016-11-01 23:24] LABS: CHLORIDE 99 MEQ/L (98-107); POTASSIUM 4.5 MEQ/L (3.5-5.1); SODIUM (NA) 139 MEQ/L (136-145)
[2016-11-01 23:28] LABS: ANION GAP 17 MEQ/L (5-15); BICARBONATE 22.8 MEQ/L (21.0-32.0); BLOOD UREA NITROGEN 112 MG/DL (7-18)
[2016-11-01 23:31] LABS: ALT (GPT) 21 U/L (12-78); AST (GOT) 21 U/L (15-37); GLOMERULAR FILTRATION RATE 8 ML/MIN (>89)
[2016-11-01 23:33] LABS: TOTAL BILIRUBIN ADULT 0.6 MG/DL (0.2-1.0)
[2016-11-01 23:34] LABS: ALKALINE PHOSPHATASE 234 U/L (45-117)
[2016-11-01] MEDS ORDERED: GUAN2TAB PO (23:35)
[2016-11-01] MEDS ORDERED: ZOFR4TAB3 SL (23:41)
[2016-11-02 00:30] LABS: GLUCOSE,URINE NEG (NEG); KETONE, URINE 15 mg/dL (NEG); NITRITE,URINE NEG (NEG)
[2016-11-02 00:39] LABS: BLOOD, URINE MOD (NEG)
[2016-11-02 00:44] LABS: URINE COLOR YELLOW (YELLW/STRAW)
[2016-11-02 00:45] LABS: COMMENT (UR) CATH-CULT NOT IND; CULTURE IF INDICATED CATH CULTURE NOT IND; SQUAMOUS EPITHELIAL CELL URINE 0-5 /hpf (0-5); WBC, URINE 0-2 /hpf (0-5)
[2016-11-02 01:08] VITALS: BP 175/72
--- NOTE | 2016-11-02 01:08 | PD ---
Physical Exam Time Seen by Provider: 00:[address] Arreola left this patient with me to check the urine and, if normal discharge. Data Data Last Documented VS Vital Signs Date Time Temp Pulse Resp B/P Pulse Ox O2 Delivery O2 Flow Rate FiO2 11/01/16 21:29 98.4 74 20 177/69 97 Orders Complete Blood Count With Diff (11/01/16 22:21) Comprehensive Metabolic Panel (11/01/16 22:21) Lactic Acid Sepsis Protocol (11/01/16 22:21) Urinalysis - C+S If Indicated (11/01/16 22:21) Blood Culture (11/01/16 22:21) Iv Access Insert/Monitor (11/01/16 22:21) Ondansetron Inj (Zofran Inj) (11/01/16 22:30) Sodium Chlor 0.9% 1000 Ml Inj (Ns 1000 M (11/01/16 22:30) Abdomen, Flat & Upright (11/01/16 22:21) Cath For Specimen (11/01/16 23:53) Labs Laboratory Tests Test 11/01/16 11/01/16 00:04 23:00 Urine Color YELLOW Urine Turbidity CLEAR Urine pH 6.0 Urine Specific [place] 1.015 Urine Protein 300 OR GREATER mg/dL Urine Glucose (UA) NEG mg/dL Urine Ketones 15 mg/dL Urine Occult Blood MOD Urine Nitrite NEG Urine Bilirubin NEG Urine Leukocyte Esterase NEG Urine RBC 4-9 /hpf Urine WBC 0-2 /hpf Urine Squamous Epithelial 0-5 /hpf Cells Microscopic Urinalysis Comment CATH-CULT NOT IND White Blood Count 7.3 TH/MM3 Red Blood Count 3.51 MIL/MM3 Hemoglobin 9.4 GM/DL Hematocrit 28.5 % Mean Corpuscular Volume 81.1 FL Mean Corpuscular Hemoglobin 26.7 PG Mean Corpuscular Hemoglobin 32.9 % Concent Red Cell Distribution Width 12.9 % Platelet Count 224 TH/MM3 Mean Platelet Volume 7.2 FL Neutrophils (%) (Auto) 80.3 % Lymphocytes (%) (Auto) 12.1 % Monocytes (%) (Auto) 5.0 % Eosinophils (%) (Auto) 1.9 % Basophils (%) (Auto) 0.7 % Neutrophils # (Auto) 5.8 TH/MM3 Lymphocytes # (Auto) 0.9 TH/MM3 Monocytes # (Auto) 0.4 TH/MM3 Eosinophils # (Auto) 0.1 TH/MM3 Basophils # (Auto) 0.1 TH/MM3 CBC Comment DIFF FINAL Differential Comment Sodium Level 139 MEQ/L Potassium Level 4.5 MEQ/L Chloride Level 99 MEQ/L Carbon Dioxide Level 22.8 MEQ/L Anion Gap 17 MEQ/L Blood Urea Nitrogen 112 MG/DL Creatinine 7.30 MG/DL Estimat Glomerular Filtration 8 ML/MIN Rate Random Glucose 121 MG/DL Lactic Acid Level 0.6 mmol/L Calcium Level 9.3 MG/DL Total Bilirubin 0.6 MG/DL Aspartate Amino Transf 21 U/L (AST/SGOT) Alanine Aminotransferase 21 U/L (ALT/SGPT) Alkaline Phosphatase 234 U/L Total Protein 8.2 GM/DL Albumin 3.2 GM/DL [facility] Medical Record Reviewed: Yes Supervised Visit with KARUNA: No Interpretation(s) The urine shows 300 or greater protein, 15 ketones, moderate occult blood and 4- 9 red cells but is otherwise normal and culture is not indicated. Differential Diagnosis Constipation, gastritis, pancreatitis, hepatitis, gastroenteritis, gallbladder disease, constipation, urinary retention, UTI, peptic ulcer disease, diverticulitis and appendicitis, urinary stone Narrative Course The patient appears to have obstipation. The urine was unremarkable except for a small amount of blood in the urine. The patient's pain is not characteristic of urinary stone, it is in the low back and epigastrium midline. It is not sharp pain. Diagnosis Primary Impression: Constipation Qualified Code: K59.00 - Constipation, unspecified constipation type Additional Impression: Vomiting Qualified Code: R11.2 - Non-intractable vomiting with nausea, unspecified vomiting type Patient Instructions: General Instructions, Constipation (DC), Acute Nausea and Vomiting (DC) Additional Instruction: Increase clear liquid intake and add prune juice and apple juice to the increase fluids. Follow-up with your primary care physician next week. Med/Other Pt SpecificInfo: Prescription(s) given Scripts Ondansetron Odt (Zofran Odt)4 Mg Tab4 Mg SL Q6HR PRN (Nausea/Vomiting) #30 TAB Ref 0 Prov:Pamela Arreola MD 11/01/16 Disposition: 01 DISCHARGE HOME Condition: Stable Yuri Rogers MD Nov 02, 2016 01:08
== END 2016-11-02 01:18 | disposition home or self-care (01) ==
LOC: PHED 21:00
DX: K59.00 Constipation, unspecified (principal); R11.2 Nausea with vomiting, unspecified; I10 Essential (primary) hypertension; E11.9 Type 2 diabetes mellitus without complications; Z79.4 Long term (current) use of insulin
CPT/HCPCS: 74020; 80053; 81001; 83605; 85025; 87040; 96361; 96374; 99284; J2405; J7030

== ENCOUNTER 2017-02-19 06:11 | Day surgery (SDC) | payer OTHER ==
[2017-02-19] VITALS (8 sets, daily range): BP systolic 134–199; BP diastolic 51–65; PULSE 70–74; RESP 18–20; TEMP 97.8; O2SAT 97–100
[~2017-02-19] VITALS: Ht 172.7 cm; Wt 91.4 kg
[~2017-02-19 06:11] MED LIST changes: -DILA2TAB2 PO; -GUAN1TAB PO; +GUAN2TAB PO; +ZOFR4TAB3 SL
[2017-02-19] MEDS ORDERED: DILT1TAB2 PO (06:59)
[2017-02-19] MEDS ORDERED: LOSA100T PO (06:59)
[2017-02-19] MEDS ORDERED: CALC0.25 PO (06:59)
[2017-02-19] MEDS ORDERED: SODIUM CHLOR 0.9% 1000 ML IV SCH (07:30)
[2017-02-19 08:08] LABS: AUTOMATED NEUTROPHIL # 4.7 TH/MM3 (1.8-7.7); BASOPHIL # 0.2 TH/MM3 (0-0.2); BASOPHIL % 2.5 % (0.0-2.0); EOSINOPHIL # 0.6 TH/MM3 (0-0.4); EOSINOPHIL % 7.1 % (0.0-4.0); HEMATOCRIT 25.9 % (39.0-51.0); HEMO FLAGS DIFF FINAL; LYMPH % 24.4 % (9.0-44.0); LYMPHOCYTE # 1.9 TH/MM3 (1.0-4.8); MEAN CELL VOLUME 80.6 FL (80.0-100.0); MEAN CORPUSCULAR HEMOGLOBIN 26.9 PG (27.0-34.0); MEAN CORPUSCULAR HGB CONC 33.4 % (32.0-36.0); MONO % 6.5 % (0.0-8.0); NEUT % 59.5 % (16.0-70.0); PLATELET COUNT 159 TH/MM3 (150-450); RED BLOOD COUNT 3.22 MIL/MM3 (4.50-5.90); RED CELL DISTRIBUTION WIDTH 14.6 % (11.6-17.2); WHITE BLOOD COUNT 7.8 TH/MM3 (4.0-11.0)
[2017-02-19] MEDS ORDERED: LIDOCAINE HCL 1% 20 ML VIAL ONE (08:15)
[2017-02-19 08:18] LABS: APTT (PATIENT) 26.6 SEC (24.3-30.1); PROTHROMBIN TIME - PATIENT 11.4 SEC (9.8-11.6)
[2017-02-19] MEDS ORDERED: MIDAZOLAM HCL 2 MG/2 ML VIAL ONE (08:30)
[2017-02-19] MEDS ORDERED: LABETALOL HCL 100 MG/20 ML VIAL ONE (09:02)
--- NOTE | 2017-02-19 09:16 | PD.RAD ---
Post CT Procedure Prog Note Pre Procedure Diagnosis: (1) CKD (chronic kidney disease) stage 4, GFR 15-29 ml/min Post Procedure Diagnosis: (1) CKD (chronic kidney disease) stage 4, GFR 15-29 ml/min Procedure Date: Feb 19, 2017 Supervising Radiologist: Harry Harley Anesthesia: Conscious Sedation Plan of Activity Patient to Unit: ROPU Patient Condition: Good See PACS Report for procedural detail/treatment Biopsy Imaging Guidance: CT Side: Right Biopsy Procedure: Kidney Specimen: Core Biopsy Plan to [facility]OPU for monitoring then discharge in 4 hours. Harry Harley MD Feb 19, 2017 09:16
--- NOTE | 2017-02-19 09:47 | RADRPT ---
EXAM DATE/TIME: 02/19/2017 08:45 [facility] COMPARISON: No previous studies available for comparison. INDICATIONS : Heavy proteinuria. SEDATION TIME: 30 minutes BIOPSY SITE: Right MEDICATION(S): 1.) 3 mg midazolam (Versed) IV 2.) 150 mcg fentanyl (Sublimaze) IV DEVICE(S): 1.) 18 gauge BioPince needle MEDICAL HISTORY : Hypertension. Diabetes mellitus type 2. Renal failure, chronic. SURGICAL HISTORY : None. ENCOUNTER: Initial ACUITY: 1 day PAIN SCORE: 0/10 LOCATION: Right A total of two core specimen(s) were obtained and sent to the laboratory for pathologic evaluation. PROCEDURE: 1. CT guided renal biopsy. 2. Conscious sedation with continuous EKG and oximetry monitoring. 3. EKG and oximetry remained stable throughout the procedure. Prior to the procedure informed consent was obtained. Any appropriate prior imaging studies were rev iewed. Using automated exposure control and adjustment of the mA and/or kV according to patient size, radiat ion dose was kept as low as reasonably achievable to obtain optimal diagnostic quality images. DICOM format image data is available electronically for review and comparison. The site was prepped in a sterile fashion. Full sterile technique was used, including cap, mask, gladis rile gloves and gown and a large sterile sheet. Hand hygiene and 2% chlorhexidine and/or betadine/al cohol prep was utilized per protocol for cutaneous antisepsis. The skin and subcutaneous tissues wer e infiltrated with local anesthetic solution. With CT guidance the previously identified target was localized. Biopsy was performed using the presc ribed needle as above. Adequate hemostasis was obtained with compression at the puncture site. Follow-up CT scan reveals minimal perinephric blood products. The patient tolerated the procedure well and there were no complications. The patient was returned to the Radiology Outpatient Unit in stable condition. CONCLUSION: Uncomplicated CT guided biopsy of the right lower pole kidney. Harry Harley MD on February 19, 2017 at 9:44 Board Certified Radiologist. This report was verified electronically.
[2017-02-19 10:21] LABS: AUTOMATED NEUTROPHIL # 4.4 TH/MM3 (1.8-7.7); BASOPHIL # 0.2 TH/MM3 (0-0.2); BASOPHIL % 2.3 % (0.0-2.0); EOSINOPHIL # 0.5 TH/MM3 (0-0.4); EOSINOPHIL % 6.7 % (0.0-4.0); HEMO FLAGS DIFF FINAL; LYMPH % 28.2 % (9.0-44.0); LYMPHOCYTE # 2.2 TH/MM3 (1.0-4.8); MEAN CELL VOLUME 80.3 FL (80.0-100.0); MEAN CORPUSCULAR HEMOGLOBIN 26.9 PG (27.0-34.0); MEAN CORPUSCULAR HGB CONC 33.5 % (32.0-36.0); MONO % 6.8 % (0.0-8.0); PLATELET COUNT 157 TH/MM3 (150-450); RED BLOOD COUNT 3.11 MIL/MM3 (4.50-5.90); RED CELL DISTRIBUTION WIDTH 14.7 % (11.6-17.2); WHITE BLOOD COUNT 7.9 TH/MM3 (4.0-11.0)
[2017-02-19 11:52] LABS: AUTOMATED NEUTROPHIL # 4.2 TH/MM3 (1.8-7.7); BASOPHIL # 0.1 TH/MM3 (0-0.2); EOSINOPHIL # 0.4 TH/MM3 (0-0.4); EOSINOPHIL % 5.8 % (0.0-4.0); HEMATOCRIT 22.4 % (39.0-51.0); HEMO FLAGS DIFF FINAL; LYMPH % 25.1 % (9.0-44.0); LYMPHOCYTE # 1.7 TH/MM3 (1.0-4.8); MEAN CORPUSCULAR HEMOGLOBIN 27.9 PG (27.0-34.0); MEAN CORPUSCULAR HGB CONC 34.5 % (32.0-36.0); MONO % 6.6 % (0.0-8.0); NEUT % 60.5 % (16.0-70.0); PLATELET COUNT 129 TH/MM3 (150-450); RED BLOOD COUNT 2.77 MIL/MM3 (4.50-5.90); RED CELL DISTRIBUTION WIDTH 14.5 % (11.6-17.2)
== END 2017-02-19 13:35 | disposition home or self-care (01) ==
LOC: HRAD 06:11 → HRIP 06:14 → HRAD 13:35
PROVIDERS: ATTEND Internal Medicine Nephrology
DX: N05.8 Unspecified nephritic syndrome with other morphologic changes (principal); N05.1 Unspecified nephritic syndrome with focal and segmental glomerular lesions; I13.10 Hypertensive heart and chronic kidney disease without heart failure, with stage 1 through stage 4 chronic kidney disease, or unspecified chronic kidney disease; E11.22 Type 2 diabetes mellitus with diabetic chronic kidney disease; N18.4 Chronic kidney disease, stage 4 (severe); R80.9 Proteinuria, unspecified; Z79.4 Long term (current) use of insulin
CPT/HCPCS: 50200; 77012; 85025; 85610; 85730; J2250; J3010; J7030

== ENCOUNTER 2017-06-26 16:13 | Inpatient (IN) | payer OTHER ==
[~2017-06-26] VITALS: Ht 172.7 cm; Wt 94.5 kg
[~2017-06-26 16:13] MED LIST changes: +CALC0.25 PO; +DILT1TAB2 PO; +LOSA100T PO; -VITA1000 PO; -VITA10004 PO; -ZOFR4TAB3 SL
[2017-06-26 16:21] VITALS: BP 154/114; PULSE 96; RESP 16; TEMP 99.7; O2SAT 98
[2017-06-26] MEDS ORDERED: PATI1POW PO (17:54)
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
[2017-06-26] MEDS ORDERED: MORPHINE SULFATE 2 MG/ML INJ IV PUSH ONE (19:15)
[2017-06-26 19:21] LABS: AUTOMATED NEUTROPHIL # 9.2 TH/MM3 (1.8-7.7); BASOPHIL # 0.1 TH/MM3 (0-0.2); BASOPHIL % 0.8 % (0.0-2.0); EOSINOPHIL # 0.2 TH/MM3 (0-0.4); EOSINOPHIL % 1.4 % (0.0-4.0); HEMATOCRIT 26.8 % (39.0-51.0); HEMOGLOBIN 8.7 GM/DL (13.0-17.0); LYMPH % 14.2 % (9.0-44.0); LYMPHOCYTE # 1.7 TH/MM3 (1.0-4.8); MEAN CELL VOLUME 80.7 FL (80.0-100.0); MEAN CORPUSCULAR HEMOGLOBIN 26.3 PG (27.0-34.0); MEAN CORPUSCULAR HGB CONC 32.5 % (32.0-36.0); MEAN PLATELET VOLUME 7.7 FL (7.0-11.0); MONO % 7.3 % (0.0-8.0); MONOCYTE # 0.9 TH/MM3 (0-0.9); NEUT % 76.3 % (16.0-70.0); PLATELET COUNT 204 TH/MM3 (150-450); RED BLOOD COUNT 3.32 MIL/MM3 (4.50-5.90); RED CELL DISTRIBUTION WIDTH 14.4 % (11.6-17.2); WHITE BLOOD COUNT 12.1 TH/MM3 (4.0-11.0)
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
[2017-06-26 19:36] LABS: CALCIUM 8.7 MG/DL (8.5-10.1)
[2017-06-26 19:37] LABS: BICARBONATE 19.9 MEQ/L (21.0-32.0)
[2017-06-26 19:40] LABS: CREATININE 5.5 MG/DL (0.60-1.30)
[2017-06-26] MEDS ORDERED: AZTREONAM INJ 2,000 MG in SODIUM CHLORIDE 0.9% INJ 100 ML IV STA (19:43)
[2017-06-26] MEDS ORDERED: Vancomycin Consult Pharmacy 1 EA OTHER SCH (20:30)
[2017-06-26] MEDS ORDERED: BISACODYL 10 MG SUPP RECTAL PRN (20:30)
[2017-06-26] MEDS ORDERED: MORPHINE SULFATE 2 MG/ML INJ IV PUSH PRN (20:30)
[2017-06-26] MEDS ORDERED: SENNOSIDES 8.6 MG TAB PO PRN (20:30)
[2017-06-26] MEDS ORDERED: MAGNESIUM HYDROXIDE SUSP 30 ML CUP PO PRN (20:30)
[2017-06-26] MEDS ORDERED: GLUCAGON 1 MG/ML VIAL OTHER PRN (20:30)
[2017-06-26] MEDS ORDERED: SODIUM CHLORIDE 0.9% FLUSH 10 ML FLUSH IV FLUSH PRN (20:30)
[2017-06-26] MEDS ORDERED: ONDANSETRON HCL 4 MG/2 ML VIAL IVP PRN (20:30)
[2017-06-26] MEDS ORDERED: ACETAMINOPHEN 325 MG TAB PO PRN (20:30)
[2017-06-26] MEDS ORDERED: LACTULOSE SYRUP 20 GM/30 ML CUP PO PRN (20:30)
[2017-06-26] MEDS ORDERED: DEXTROSE 50% IN WATER 50 ML VIAL(D50) IV PUSH PRN (20:30)
[2017-06-26] MEDS ORDERED: ACETAMINOPHEN/HYDROcodone 325 MG/5 MG TAB PO PRN (20:30)
[2017-06-26 21:00] VITALS: BP 138/88; PULSE 84; RESP 18; O2SAT 97
[2017-06-26] MEDS: SODIUM CHLORIDE 0.9% FLUSH 10 ML FLUSH IV FLUSH SCH (21:00)
[2017-06-26] MEDS: DOCUSATE SODIUM 50 MG/SENNA 8.6 MG TAB PO SCH (21:00)
[2017-06-26] MEDS ORDERED: VANCOMYCIN 1 GM/200 ML PREMIX IV ONE (22:00)
[2017-06-26 23:00] VITALS: BP 158/89; PULSE 82; RESP 18; O2SAT 97
[2017-06-26] MEDS: SODIUM CHLOR 0.9% 1000 ML INJ 1,000 ML IV SCH (23:01)
[2017-06-26 23:15] VITALS: BP 170/88; PULSE 78; RESP 20; TEMP 96.7; O2SAT 97
[2017-06-26] MEDS: INSULIN ASPART SUPPLEMENTAL SCALE SQ SCH (23:20)
[2017-06-26 23:38] VITALS: PULSE 77
[2017-06-27] VITALS (8 sets, daily range): BP systolic 153–218; BP diastolic 70–90; PULSE 78–117; RESP 20; TEMP 96.1–98.8; O2SAT 96–99
[2017-06-27] MEDS: AZTREONAM INJ 1,000 MG in SODIUM CHLORIDE 0.9% INJ 100 ML IV SCH ×3 (04:13→20:29)
[2017-06-27] MEDS: SODIUM CHLOR 0.9% 1000 ML INJ 1,000 ML IV SCH ×2 (06:09→12:27)
[2017-06-27 07:03] LABS: AUTOMATED NEUTROPHIL # 6.8 TH/MM3 (1.8-7.7); BASOPHIL # 0.1 TH/MM3 (0-0.2); EOSINOPHIL # 0.3 TH/MM3 (0-0.4); EOSINOPHIL % 3.4 % (0.0-4.0); HEMATOCRIT 26.9 % (39.0-51.0); HEMOGLOBIN 9.1 GM/DL (13.0-17.0); LYMPH % 17.9 % (9.0-44.0); LYMPHOCYTE # 1.7 TH/MM3 (1.0-4.8); MEAN CORPUSCULAR HEMOGLOBIN 27.3 PG (27.0-34.0); MEAN CORPUSCULAR HGB CONC 33.7 % (32.0-36.0); MEAN PLATELET VOLUME 7.1 FL (7.0-11.0); MONO % 7.8 % (0.0-8.0); MONOCYTE # 0.8 TH/MM3 (0-0.9); NEUT % 69.9 % (16.0-70.0); PLATELET COUNT 184 TH/MM3 (150-450); RED BLOOD COUNT 3.32 MIL/MM3 (4.50-5.90); RED CELL DISTRIBUTION WIDTH 14.3 % (11.6-17.2); WHITE BLOOD COUNT 9.6 TH/MM3 (4.0-11.0)
[2017-06-27 07:08] LABS: CHLORIDE 113 MEQ/L (98-107); SODIUM (NA) 142 MEQ/L (136-145)
[2017-06-27 07:12] LABS: ALBUMIN 2.3 GM/DL (3.4-5.0); BICARBONATE 19.2 MEQ/L (21.0-32.0); CALCIUM 8.3 MG/DL (8.5-10.1); GLUCOSE,RANDOM 114 MG/DL (74-106)
[2017-06-27 07:13] LABS: BLOOD UREA NITROGEN 63 MG/DL (7-18)
[2017-06-27 07:15] LABS: ALT (GPT) 15 U/L (12-78); AST (GOT) 13 U/L (15-37)
[2017-06-27 07:16] LABS: GLOMERULAR FILTRATION RATE 12 ML/MIN (>89)
[2017-06-27 07:17] LABS: TOTAL BILIRUBIN ADULT 0.4 MG/DL (0.2-1.0); TOTAL PROTEIN 6.9 GM/DL (6.4-8.2)
[2017-06-27 07:18] LABS: ALKALINE PHOSPHATASE 151 U/L (45-117)
[2017-06-27] MEDS: INSULIN ASPART SUPPLEMENTAL SCALE SQ SCH ×4 (08:00→20:30)
[2017-06-27] MEDS: DOCUSATE SODIUM 50 MG/SENNA 8.6 MG TAB PO SCH ×2 (09:00→20:30)
[2017-06-27] MEDS: SODIUM CHLORIDE 0.9% FLUSH 10 ML FLUSH IV FLUSH SCH ×2 (09:00→20:30)
[2017-06-27] MEDS: HEPARIN SODIUM - SQ 10,000 UNITS/ML VIAL SQ SCH ×2 (09:34→20:30)
[2017-06-27] MEDS ORDERED: CARD240C6 PO (13:48)
[2017-06-27] MEDS: LOSARTAN 50 MG TAB PO SCH (13:53)
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
[2017-06-27] MEDS ORDERED: RESP: ALBUTEROL CONC 2.5 MG/0.5 ML NEB INH ONE (15:00)
[2017-06-27] MEDS: SODIUM POLYSTYRENE SULFONATE SUSP 15 GM/60 ML CUP PO SCH ×2 (19:23→20:28)
[2017-06-27] MEDS: ATORVASTATIN 10 MG TAB PO SCH (20:30)
[2017-06-27] MEDS ORDERED: cloNIDine HCL 0.1 MG TAB PO ONE (22:45)
[2017-06-28] VITALS: BP 201/86; PULSE 103; RESP 20; TEMP 98.8; O2SAT 98
[2017-06-28] MEDS: SODIUM CHLOR 0.9% 1000 ML INJ 1,000 ML IV SCH ×3 (00:32→21:10)
[2017-06-28 04:00] VITALS: BP 189/83; PULSE 91; RESP 20; TEMP 97.1; O2SAT 98
[2017-06-28] MEDS: AZTREONAM INJ 1,000 MG in SODIUM CHLORIDE 0.9% INJ 100 ML IV SCH ×3 (04:04→19:59)
[2017-06-28 07:25] LABS: CREATININE 4.8 MG/DL (0.60-1.30)
[2017-06-28 08:00] VITALS: BP 170/83; PULSE 89; PULSE 91; RESP 18; TEMP 97.1; O2SAT 98
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
[2017-06-28] MEDS: INSULIN ASPART SUPPLEMENTAL SCALE SQ SCH ×4 (08:30→21:00)
[2017-06-28] MEDS: SODIUM POLYSTYRENE SULFONATE SUSP 15 GM/60 ML CUP PO SCH ×2 (08:34→12:16)
[2017-06-28] MEDS: DOCUSATE SODIUM 50 MG/SENNA 8.6 MG TAB PO SCH ×2 (08:36→21:09)
[2017-06-28] MEDS: LOSARTAN 50 MG TAB PO SCH (08:36)
[2017-06-28] MEDS: SODIUM CHLORIDE 0.9% FLUSH 10 ML FLUSH IV FLUSH SCH ×2 (08:37→21:00)
[2017-06-28] MEDS: HEPARIN SODIUM - SQ 10,000 UNITS/ML VIAL SQ SCH ×2 (08:37→21:09)
[2017-06-28 10:23] LABS: BICARBONATE 18.8 MEQ/L (21.0-32.0); CALCIUM 7.9 MG/DL (8.5-10.1)
[2017-06-28] MEDS: DILTIAZEM-CD 240 MG CAP ER PO SCH (11:16)
[2017-06-28] MEDS: MUPIROCIN 2% CREAM 15 GM TOPICAL SCH (11:16)
[2017-06-28 12:00] VITALS: BP 170/69; PULSE 88; RESP 14; TEMP 97.7; O2SAT 99
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
[2017-06-28] MEDS ORDERED: INSULIN HUMAN REGULAR 1,000 UNITS/10 ML VIAL IV PUSH ONE (13:45)
[2017-06-28] MEDS ORDERED: DEXTROSE 50% IN WATER 50 ML VIAL(D50) IV PUSH ONE (13:45)
[2017-06-28] MEDS: cloNIDine HCL 0.1 MG TAB PO PRN ×2 (14:57→21:09)
[2017-06-28 16:00] VITALS: BP 158/62; PULSE 86; RESP 18; TEMP 97.7; O2SAT 99
[2017-06-28 20:00] VITALS: BP 216/88; PULSE 87; PULSE 91; RESP 20; TEMP 98.1; O2SAT 99
[2017-06-28] MEDS: ATORVASTATIN 10 MG TAB PO SCH (21:09)
[2017-06-28] MEDS ORDERED: VANCOMYCIN 1,000 MG/NS 250 ML IV SCH ×2 (22:00)
[2017-06-29] VITALS: BP 151/70; PULSE 80; RESP 20; TEMP 97.4; O2SAT 97
[2017-06-29 04:00] VITALS: BP 208/88; PULSE 79; RESP 18; TEMP 96.4; O2SAT 96
[2017-06-29] MEDS: AZTREONAM INJ 1,000 MG in SODIUM CHLORIDE 0.9% INJ 100 ML IV SCH ×3 (04:14→20:08)
[2017-06-29] MEDS: cloNIDine HCL 0.1 MG TAB PO PRN ×2 (04:43→23:25)
[2017-06-29 07:10] LABS: BICARBONATE 18.7 MEQ/L (21.0-32.0); CALCIUM 7.4 MG/DL (8.5-10.1); CREATININE 4.4 MG/DL (0.60-1.30)
[2017-06-29 07:33] LABS: CALCIUM-PROTEIN CORRECTED 8.1 MG/DL (8.5-10.1); TOTAL PROTEIN 5.9 GM/DL (6.4-8.2)
[2017-06-29 08:00] VITALS: BP 181/78; PULSE 85; RESP 14; TEMP 97.5; O2SAT 97
[2017-06-29] MEDS: INSULIN ASPART SUPPLEMENTAL SCALE SQ SCH ×4 (08:00→20:14)
[2017-06-29] MEDS: SODIUM CHLORIDE 0.9% FLUSH 10 ML FLUSH IV FLUSH SCH ×2 (09:00→20:13)
[2017-06-29] MEDS: SODIUM CHLOR 0.9% 1000 ML INJ 1,000 ML IV SCH ×3 (09:20→20:08)
[2017-06-29] MEDS: HEPARIN SODIUM - SQ 10,000 UNITS/ML VIAL SQ SCH ×2 (09:22→20:11)
[2017-06-29] MEDS: DOCUSATE SODIUM 50 MG/SENNA 8.6 MG TAB PO SCH ×2 (09:24→20:11)
[2017-06-29] MEDS: DILTIAZEM-CD 240 MG CAP ER PO SCH (09:24)
[2017-06-29] MEDS: LOSARTAN 50 MG TAB PO SCH (09:24)
[2017-06-29] MEDS ORDERED: PATIROMER CALCIUM SORBITEX 8.4 GM PKT PO SCH (11:00)
[2017-06-29] MEDS: MUPIROCIN 2% CREAM 15 GM TOPICAL SCH (11:06)
[2017-06-29 12:00] VITALS: BP_SYST 119; BP_SYST 193; BP_DIAS 80; BP_DIAS 85; PULSE 67; PULSE 80; RESP 14; RESP 16; TEMP 95.7; TEMP 97.5; O2SAT 99
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
[2017-06-29] MEDS: SODIUM BICARBONATE 325 MG TAB PO SCH ×2 (13:43→17:46)
[2017-06-29] MEDS: SILVER SULFADIAZINE 1% CR 400 GM JAR TOPICAL SCH ×2 (13:47→20:14)
[2017-06-29] MEDS: FUROSEMIDE 80 MG TAB PO SCH ×2 (13:57→20:11)
[2017-06-29] MEDS: SERTRALINE HCL 100 MG TAB PO SCH (13:57)
[2017-06-29] MEDS: CALCITRIOL 0.25 MCG CAP PO SCH (13:58)
[2017-06-29 16:00] VITALS: BP 155/68; PULSE 80; RESP 12; TEMP 97.4; O2SAT 97
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
[2017-06-29 20:00] VITALS: BP 214/84; PULSE 84; PULSE 85; RESP 20; TEMP 97.5; O2SAT 99
[2017-06-29] MEDS: ATORVASTATIN 10 MG TAB PO SCH (20:11)
[2017-06-29] MEDS ORDERED: guanFACINE HCL 1 MG TAB PO SCH (21:00)
[2017-06-30] VITALS: BP 211/87; PULSE 101; RESP 20; TEMP 98.8; O2SAT 100
[2017-06-30 04:00] VITALS: BP 158/70; PULSE 79; RESP 20; TEMP 98.7; O2SAT 97
[2017-06-30] MEDS: AZTREONAM INJ 1,000 MG in SODIUM CHLORIDE 0.9% INJ 100 ML IV SCH ×2 (04:08→12:31)
[2017-06-30 07:10] LABS: AUTOMATED NEUTROPHIL # 5.9 TH/MM3 (1.8-7.7); BASOPHIL # 0.1 TH/MM3 (0-0.2); BASOPHIL % 0.8 % (0.0-2.0); EOSINOPHIL # 0.3 TH/MM3 (0-0.4); EOSINOPHIL % 4.1 % (0.0-4.0); HEMATOCRIT 21.8 % (39.0-51.0); HEMOGLOBIN 7.2 GM/DL (13.0-17.0); LYMPH % 18.4 % (9.0-44.0); LYMPHOCYTE # 1.6 TH/MM3 (1.0-4.8); MEAN CORPUSCULAR HEMOGLOBIN 26.9 PG (27.0-34.0); MEAN CORPUSCULAR HGB CONC 33.2 % (32.0-36.0); MEAN PLATELET VOLUME 6.9 FL (7.0-11.0); MONO % 7.3 % (0.0-8.0); MONOCYTE # 0.6 TH/MM3 (0-0.9); NEUT % 69.4 % (16.0-70.0); PLATELET COUNT 199 TH/MM3 (150-450); RED BLOOD COUNT 2.69 MIL/MM3 (4.50-5.90); WHITE BLOOD COUNT 8.5 TH/MM3 (4.0-11.0)
[2017-06-30 07:16] LABS: CHLORIDE 117 MEQ/L (98-107); SODIUM (NA) 144 MEQ/L (136-145)
[2017-06-30 07:26] LABS: ALBUMIN 1.9 GM/DL (3.4-5.0); BICARBONATE 18.2 MEQ/L (21.0-32.0); BLOOD UREA NITROGEN 45 MG/DL (7-18); CALCIUM 7.6 MG/DL (8.5-10.1); GLUCOSE,RANDOM 116 MG/DL (74-106); MAGNESIUM 1.3 MG/DL (1.5-2.5)
[2017-06-30 07:28] LABS: ALT (GPT) 22 U/L (12-78)
[2017-06-30 07:29] LABS: AST (GOT) 22 U/L (15-37); GLOMERULAR FILTRATION RATE 16 ML/MIN (>89); PHOSPHORUS 4.1 MG/DL (2.5-4.9)
[2017-06-30 07:30] LABS: TOTAL BILIRUBIN ADULT 0.2 MG/DL (0.2-1.0)
[2017-06-30 07:31] LABS: ALKALINE PHOSPHATASE 190 U/L (45-117)
[2017-06-30] MEDS: SODIUM CHLOR 0.9% 1000 ML INJ 1,000 ML IV SCH (07:55)
[2017-06-30] MEDS: INSULIN ASPART SUPPLEMENTAL SCALE SQ SCH ×2 (08:00→12:00)
[2017-06-30] MEDS ORDERED: DILTIAZEM-CD 180 MG CAP ER PO SCH (08:00)
[2017-06-30] MEDS ORDERED: DILTIAZEM-CD 120 MG CAP ER PO SCH (08:00)
[2017-06-30 08:17] VITALS: PULSE 73
[2017-06-30 09:00] VITALS: BP 175/83; PULSE 73; RESP 20; TEMP 98; O2SAT 98
[2017-06-30] MEDS: DOCUSATE SODIUM 50 MG/SENNA 8.6 MG TAB PO SCH (09:00)
[2017-06-30] MEDS: SODIUM CHLORIDE 0.9% FLUSH 10 ML FLUSH IV FLUSH SCH (09:33)
[2017-06-30] MEDS: SERTRALINE HCL 100 MG TAB PO SCH (09:33)
[2017-06-30] MEDS: SODIUM BICARBONATE 325 MG TAB PO SCH (09:34)
[2017-06-30] MEDS: FUROSEMIDE 80 MG TAB PO SCH (09:34)
[2017-06-30] MEDS: LOSARTAN 50 MG TAB PO SCH (09:34)
[2017-06-30] MEDS: CALCITRIOL 0.25 MCG CAP PO SCH (09:35)
[2017-06-30] MEDS: HEPARIN SODIUM - SQ 10,000 UNITS/ML VIAL SQ SCH (09:36)
[2017-06-30] MEDS: SILVER SULFADIAZINE 1% CR 400 GM JAR TOPICAL SCH (09:36)
[2017-06-30 10:01] LABS: FREE T4 0.88 NG/DL (0.76-1.46)
[2017-06-30 12:00] VITALS: BP 176/89; PULSE 81; RESP 16; TEMP 97.3; O2SAT 98
[2017-06-30] MEDS: MUPIROCIN 2% CREAM 15 GM TOPICAL SCH (12:31)
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
[2017-06-30] MEDS ORDERED: CEPH-459 PO (13:13)
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
[2017-06-30] MEDS ORDERED: SILV1CRE20 TOPICAL (14:51)
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
[2017-06-30 15:55] LABS: HEMOGLOBIN A1C 6.9 % (4.3-6.0)
[2017-07-02] MEDS ORDERED: PHARMACY ORDERED LAB ONE (21:45)
== END 2017-06-30 16:07 | disposition home or self-care (01) | DRG 935 ==
LOC: PHED 16:13 → PHEDA 20:25 → PH3B 23:13
PROVIDERS: ADMIT Hospitalist; ATTEND Hospitalist
DX: T25.211A Burn of second degree of right ankle, initial encounter (principal); I13.2 Hypertensive heart and chronic kidney disease with heart failure and with stage 5 chronic kidney disease, or end stage renal disease; N18.5 Chronic kidney disease, stage 5; I50.9 Heart failure, unspecified; E11.628 Type 2 diabetes mellitus with other skin complications; Z79.4 Long term (current) use of insulin; L03.115 Cellulitis of right lower limb; B95.61 Methicillin susceptible Staphylococcus aureus infection as the cause of diseases classified elsewhere; D89.9 Disorder involving the immune mechanism, unspecified; E87.5 Hyperkalemia; E78.5 Hyperlipidemia, unspecified; X03.0XXA Exposure to flames in controlled fire, not in building or structure, initial encounter; Z86.14 Personal history of Methicillin resistant Staphylococcus aureus infection; Z88.2 Allergy status to sulfonamides
CPT/HCPCS: 16025; 73600; 80048; 80053; 82565; 82948; 83036; 83735; 84100; 84155; 84439; 84443; 85025; 86403; 87040; 87070; 87147; 87186; 87205; 94664; 96365; 96375; J1644; J1815; J2270; J3370; J7030; J7050; J7611